=== PATIENT | female | born 1985 | race Caucasian/White ===

== ENCOUNTER 2016-07-09 06:45 | Inpatient (IN) | payer OTHER ==
[~2016-07-09] VITALS: Ht 157.5 cm; Wt 95.7 kg
--- NOTE | 2016-07-09 09:35 | NUR ---
admit note Pt transferred from [facility]. Report received form [facility] RN. Pt arrived to room 1010 via stretcher with numerical control machine machinist. Pt oriented to room, use of call light. Policies and procedure explained. Pt verbalized understanding. Pt alert, oriented to person, place and time. Pt SL at this time. Ongoing care.
[2016-07-09 10:04] VITALS: BP 131/85; PULSE 81; RESP 18; O2SAT 100
[2016-07-09] MEDS ORDERED: 0.9% Sodium Chloride 1,000 ML IV SCH (10:17)
[2016-07-09] MEDS ORDERED: Polyethylene Glycol (PEG) 17 Gm Powder PO PRN (10:20)
[2016-07-09] MEDS ORDERED: Alum-Mag Hydrox-Simeth 30 mL Suspension PO PRN (10:20)
[2016-07-09] MEDS ORDERED: DESM10SP6 NASAL (13:15)
[2016-07-09] MEDS: Ondansetron 2 mg/mL 2 mL Inj IVPUSH PRN (13:56)
[2016-07-09 14:32] VITALS: BP 134/91; PULSE 89; RESP 18; O2SAT 96
--- NOTE | 2016-07-09 15:53 | PCM.HPMED ---
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 Patient had been in her regular state of health when she started to develop flu like symptoms and went to urgent care. Patient was in urgent care but due to the acuity of her illness and her medical history she was asked to go to the ER. Patient was seen at [facility] for possible influenza. Patient had blood work done which revealed the presence of hyponatremia. Patient was seen to have a sodium level of 117. Given the lack of nephrology and endocrinology, the physicians at [facility] believed the patient would receive a higher level of care at [facility]. Patient when seen had no complaints except for occasional headache and polyuria. Patient had missed one dose of her medication and patients symptoms normalized after taking her own medication. Patient is currently stable and has no complaints. Review of Systems: patient has complaints of polyuria and occasional headaches, patient has no other complaints at the moment Allergies Coded Allergies: morphine (Verified Allergy, Mild, 07/09/16) Home Medications vasopressin intranasal spray PMH pituitary mass, diabetes insipidus Surgical History trans sphenoidal removal of pituitary mass Family History non-contributory Social History Hx Alcohol Use: Yes ("a couple glasses of wine a night") Hx Substance Use: No Exam Vital Signs Vital Sign - Last Date Time Temp Pulse Resp B/P Pulse Ox O2 Delivery O2 Flow Rate FiO2 07/09/16 14:32 36.7 89 18 134/91 96 Room Air Exam Gen: Alert and oriented X 3, no acute distress HEENT: PERRL, neck supple, cranial nerves intact CV: S1 and S2 noted, no murmurs rubs or gallops Resp: CTA BL, no wheezes or crackls Abd: Soft non tender, no pain to palpation Ext: Appropriate motor and sensory function. Neuro: Appropriate motor function, no focal neurological deficits Psych: Appropriate mood and affect Lab and Diagnostics Labs labratory values in bedside chart from [facility], will obtain repeat values later today Assessment & Plan Patient is a 30 year old female with diabetes insipidus that is presenting with an incidental finding of hyponatremia on out patient blood work. Patient is asymptomatic and has complaints at the moment. Hyponatremia - Patient has an established history of diabetes insipidus secondary to pituitary mass removal - Patient has been on desmopressin for 14 years - Pt does not have an granite installer currently and has not had any follow up in years - Her prescription is primarily filled by her pmd, and according to her most recent visit had no abdnormality in her sodium - She admits to drinking more water than usual since shes felt ill, she has missed only one dose of her vasopressin - pt had a quick episode of polyuria indicating medication leaving the system , resumed desmorpessin after this - will do fluid restriction and continue with vasopressin dose - will repeat sodium in the afternoon and that will dictate to as the next step in managment - if patient continues to have hyponatremia, will increase sodium load Influenza - Patient had complaints of flu like symptoms - pt tested negative for flu DVT ppx via lovenox GI ppx not warranted Pt is from home, no services required Vin Quigley MD Jul 09, 2016 15:53
--- NOTE | 2016-07-09 17:39 | NUR ---
Nausea/headache pt c/o of nausea and headache, Administered 8mg zofran pt stating feeling "a little better" with reassessment. MD made aware about headache, new order for 600mg ibuprofen. Pt resting with eyes closed with reassessment.
--- NOTE | 2016-07-09 17:51 | NUR ---
Social Work: Screen D: Per EMR review, pt is a 30 year old female admitted for hyponatremia, Possible Viral Syndrome. Pt is [employer] insurance. PCP Is Argelia Chacon DO. NOK is Uriel Dong, Spouse, . Advanced directives not completed; ELECTROPLATER APPRENTICE provided copy to pt. Readmit score not entered at this time. EMR reviewed; Pt lives in [place] with her spouse. She is I at baseline and continues to be I during admission. No sw needs or barriers identified at this time. A: [place]. P: Anticipate pt to discharge home via POV pending clinical course; ELECTROPLATER APPRENTICE to continue to follow and assist if dcp needs arise. LINDA Batres
[2016-07-09 20:10] VITALS: BP 130/81; PULSE 86; RESP 18; O2SAT 98
[2016-07-09] MEDS ORDERED: Desmopressin 100 mCg/mL 5 mL Nasal Spray NASAL SCH (20:30)
[2016-07-09 22:33] VITALS: PULSE 84
[2016-07-10] VITALS (8 sets, daily range): BP systolic 117–143; BP diastolic 79–90; PULSE 78–92; RESP 20–22; O2SAT 99–100
--- NOTE | 2016-07-10 02:51 | NUR ---
Diarrhea/Nausea Pt alert and oriented x3. C/o slight nausea but felt that she started having the loose bm after 1st dose of Zofran yesterday afternoon. She expressed concern of feeling slightly dizzy and weak again. She expressed some anxiety that her Na level might be low again. Md made aware. Pt educated about 1.5L Free water fluid restriction with understanding. Pt had another small diarrhea last night. She refused further dose of Zofran for mild nausea at this time. No vomiting noted/reported. Telemetry SR in 80s to 90s. HR up to low 110s with activity.
[2016-07-10 06:22] LABS: BASOPHILS % (AUTO) 0.4 % (0-3); EOSINOPHILS % (AUTO) 0.5 % (0-5); MONOCYTES % (AUTO) 12.4 % (4-12); Mean Corpuscular Hemoglobin 28.7 pg (27.0-35.0); Mean Corpuscular Volume 79.8 fL (81-100); NEUTROPHILS % (AUTO) 52.1 % (40-74); Platelet Count 319 bil/L (150-400)
[2016-07-10] MEDS: DESMOPRESSIN ACETATE NASAL SCH ×2 (08:08→20:15)
[2016-07-10] MEDS: 0.9% Sodium Chloride 1,000 ML IV SCH ×2 (08:38→18:36)
[2016-07-10 08:57] LABS: APPEARANCE,URINE HAZY (CLEAR,HAZY); COLOR,URINE YELLOW (YELLOW); OCCULT BLOOD,URINE NEGATIVE (NEGATIVE); UROBILINOGEN,URINE NORMAL (NORMAL)
--- NOTE | 2016-07-10 09:23 | NUR ---
Anxiety Pt anxious about Na level. Educated pt on free h20 restriction but enc pt to drink other fluids such as chicken broth. Pt states she still feels like she is in a "fog" but she thinks that the iv fluids were working (fluid just started and 47 mls were infused). Explained to pt that it may take some time for her to feel better since the fluids had just started. Pt and pt stated that she had not slept in 48 hours. Enc pt to try and rest. Care conts
--- NOTE | 2016-07-10 10:34 | NUR ---
nausea mild nausea after drinking a cup of broth quickly but still wants to eat her breakfast. Printed info about Coronavirus given to pt and . Rare prod cough, feeling of fullness in her head, she no longer has a sore throat
[2016-07-10] MEDS: Ondansetron 2 mg/mL 2 mL Inj IVPUSH PRN (11:07)
--- NOTE | 2016-07-10 16:29 | PCM.PNMED ---
Subjective Date of Service Jul 10, 2016 Subjective says feeling delirious and with nausea and lightheadedness with standing. Is convinced that her sodium level is much lower than what the lab showed this morning! Exam Vital Signs Vital Sign - Last Date Time Temp Pulse Resp B/P Pulse Ox O2 Delivery O2 Flow Rate FiO2 07/10/16 13:25 36.3 80 20 130/85 100 Room Air Intake and Output 07/09/16 07/09/16 07/10/16 Cumulative From/Thru 15:00 23:00 07:00 07/09/16 14:34 - 07/10/16 05:44 Intake Total 1000 ml 560 ml 1560 ml Output Total 2200 ml 1000 ml 3200 ml Balance -1200 ml -440 ml -1640 ml Intake Oral 1000 ml 560 ml 1560 ml Output Urine Total 2200 ml 1000 ml 3200 ml # Bowel Movements 0 1 1 General: Alert, Oriented X3, Cooperative, No Acute Distress Eyes: PERRLA, EOMI, Scleral Anicteric Mouth: Mucous Membr Moist/[place] Neck: Supple Chest & Lungs: Chest Wall Normal, Clear to auscultation & percussion Cardiovascular: Regular Rate/Rhythm Abdomen: Non-tender, Non-distended, Normoactive bowel tones, Soft Extremities: No cyanosis/clubbing/edma bilat Neurological: Grossly Neurologically Intact, Cranial Nerves 2-12 Intact, Normal Speech IVs and Medications Medications Reviewed: Medications were reviewed in detail Lab and Diagnostics Result Diagram: 07/10/1645 07/10/16 0545 Assessment & Plan 30 year old female with history of trans sphenoidal removal of pituitary mass and subsequent diabetes insipidus presenting with an incidental finding of hyponatremia at an outside hospital after presenting with flu like symptoms # Acute Hyponatremia. poa. ongoing - did not respond to fluid restriction and resumption vasopressin yesterday - clinically appears somewhat dehydrated - start trial of IV NS - f/u repeat BMP this afternoon and if Na not improving or worsening will consider official nephrology consult at that point # History of diabetes insipidus secondary to pituitary mass removal - c/w home dose desmopressin # Generalized malaise and upper respiratory symptoms. - She was apparently only checked for rapid flu test prior to admission - viral PCR ordered today and positive for Coronavirus OC43 - c/w supportive care and symptom management # Acute UTI, likely present on admission - UA was ordered today for further workup of hyponatremia and reported symptoms and seems positive for UTI - start empiric IV Ceftriaxone - f/u pending culture # Report of insomnia for past few days - will give prin Ativan tonight both for sleep and control of generalized anxiety Dispo: 2-3 days Time spent 40 min with more than half face to face and answering patient's multiple questions and concerns Quinton Hoyos Jul 10, 2016 16:29
[2016-07-10] MEDS ORDERED: cefTRIAXone Inj 2,000 MG in IV Premix 1 EACH IV SCH (16:30)
[2016-07-10] MEDS ORDERED: LORazepam 1 mg Tablet PO PRN (20:05)
--- NOTE | 2016-07-11 00:34 | NUR ---
Transfer to Care Report given to Gavino. NS at 100 ml/hr. Pt c/o continue cramping during voids. Ativan po given for anxiety and difficulty sleeping.
[2016-07-11 00:45] VITALS: BP 120/79; PULSE 91; RESP 20; O2SAT 100
[2016-07-11] MEDS: 0.9% Sodium Chloride 1,000 ML IV SCH (04:39)
[2016-07-11 05:43] VITALS: BP 123/88; PULSE 100; RESP 20; O2SAT 98
[2016-07-11 06:37] LABS: BASOPHILS % (AUTO) 0.3 % (0-3); EOSINOPHILS % (AUTO) 0.2 % (0-5); MONOCYTES % (AUTO) 11.4 % (4-12); NEUTROPHILS % (AUTO) 54.1 % (40-74); Platelet Count 350 bil/L (150-400)
[2016-07-11 07:14] LABS: INR 0.97 ratio
[2016-07-11] MEDS: DESMOPRESSIN ACETATE NASAL SCH ×2 (08:10→17:00)
[2016-07-11] MEDS: Ondansetron 2 mg/mL 2 mL Inj IVPUSH PRN ×2 (09:52→23:46)
--- NOTE | 2016-07-11 10:23 | NUR ---
Patient requested to have a shower today. she is set up to do so although is wanting to define the time when it is done. Addendum: 07/11/16 at 1024 by JEREMÍAS ALBA CNA Amended: Links added.
[2016-07-11 11:47] VITALS: BP 155/92; PULSE 84; RESP 18; O2SAT 99
--- NOTE | 2016-07-11 12:59 | PCM.PNMED ---
Subjective Date of Service Jul 11, 2016 Subjective woosy intermittently, not necessarily w/ ativan which helped her to sleep last night, Etoh 2 per day no DTs in the past pateint has actually been taking her nasal desmopressin sinus congestion is improved dysuria is resolved but ongoing bladder pressure Exam Vital Signs Vital Sign - Last Date Time Temp Pulse Resp B/P Pulse Ox O2 Delivery O2 Flow Rate FiO2 07/11/16 11:47 36.8 84 18 155/92 99 Room Air Intake and Output 07/10/16 07/10/16 07/11/16 Cumulative From/Thru 15:00 23:00 07:00 07/09/16 14:34 - 07/10/16 20:13 Intake Total 2586 ml 4146 ml Output Total 500 ml 3700 ml Balance 2086 ml 446 ml Intake Oral 1516 ml 3076 ml IV Total 1070 ml 1070 ml Output Urine Total 500 ml 3700 ml # Voids 1 1 # Bowel Movements 1 2 Exam NAD A and O x 3 n oinjected eyes no oral lseions no pain to sinus palpation CTAB RRR soft + BS SOARES edematous facial/arm leg appearance, which is endorse by friend and started after ER bolused her 2 days ago. Lab and Diagnostics Result Diagram: 07/11/16 0610 07/11/16 0610 Assessment & Plan 30 year old female with trans sphenoidal removal of pituitary mass/diabetes insipidus/desmopressin x 14 yr, presenting with flu like symptoms / sinusitis / diarrhea related UTI, cornavirus detected, UCx just nadeem. # Acute Hyponatremia. worse poa. ongoing edema - s/p fluid restriction 1.5L, NS resumed, resumption vasopressin(at bedside not on AUG) >> CHANGE NOW fluid restrict to 1L, salt tab QDay (consdier TID), dc NS- rocephine, augmentin pill instead, Uosm Lilli pending, thoguht to be SIADH but actually still taking her desmopressin. Nephrology aware. - f/u repeat BMP this afternoon and if Na not improving or worsening will consider official nephrology consult at that point # History of diabetes insipidus secondary to pituitary mass removal - c/w home dose desmopressin # Generalized malaise and upper respiratory symptoms. positive for Coronavirus OC43 # Acute UTI, likely present on admission - positive UA w/ symptoms - dc IV Ceftriaxone tansition to augmentin # Report of insomnia for past few days - prn Ativan tonight both for sleep and control of generalized anxiety dvt prophylaxis - ambulate, many arm bruises dc lovenox Dispo: 2-3 days Darnell Perez MD Jul 11, 2016 12:59 Dispo: 2-3 days Darnell Peerz MD Jul 11, 2016 12:59
[2016-07-11] MEDS: Amoxicillin-Clav 875-125 mg Tablet PO SCH ×2 (14:35→22:28)
[2016-07-11 15:51] VITALS: BP 147/99; PULSE 87; RESP 18; O2SAT 99
--- NOTE | 2016-07-11 17:46 | NUR ---
Confusion/Blood sugar Pt reporting decrease in confusion and hallucinations as day progressed, specifically with DC'ing IVF and administration of salt tablet. Pt requesting Desmopressin earlier than 2030 d/t worsening frequency, administered at 1745 as order is BID and pt would administer this way at home. Per conversation with Dr. Perez, [facility] blood sugar checks are not necessary. She will check chemistry with morning labs.
[2016-07-11 21:21] VITALS: BP 132/89; PULSE 87; RESP 20; O2SAT 99
[2016-07-11] MEDS ORDERED: 3% Sodium Chloride Inj 500 ML IV STA (21:41)
[2016-07-11] MEDS: LORazepam 1 mg Tablet PO PRN (22:28)
--- NOTE | 2016-07-11 23:00 | NUR ---
Sodium Critical sodium of 119. MD made aware. New orders for 3% sodium drip at 20ml/hr with repeat labs at 0200. MD also wanted to hold desmopressin. Pt also continues with 1000 free fluid restriction. Pt reports feeling better despite critical lab. Addendum: 07/12/16 at 0631 by NIDA STARKS RN Sodium 0200 sodium level was 120. Pt request to take her desmopressin inhaler. Checked with hospitalist who said it was okay for pt to have her desmopressin.
[2016-07-12] MEDS: DESMOPRESSIN ACETATE NASAL SCH (04:02)
[2016-07-12 05:29] VITALS: BP 110/85; PULSE 91; RESP 20
[2016-07-12] MEDS: Amoxicillin-Clav 875-125 mg Tablet PO SCH (09:27)
[2016-07-12] MEDS: Ondansetron 2 mg/mL 2 mL Inj IVPUSH PRN (09:38)
--- NOTE | 2016-07-12 10:17 | PCM.PNMED ---
Subjective Date of Service Jul 12, 2016 Subjective Her confusion has cleared. Her and her close friend are present and deeply involved in the discussions regarding her DDAVP, her sodium level, and the clinical treatment approach to be taken today. Her sodium level this morning is 120, with a follow-up now pending after a 3% sodium infusion that is about shelter done so far. Dr. Montano of nephrology has been giving guidance on the approach but has not formally seen her yet Exam Vital Signs Vital Sign - Last Date Time Temp Pulse Resp B/P Pulse Ox O2 Delivery O2 Flow Rate FiO2 07/12/16 05:29 36.7 91 20 110/85 Room Air 07/11/16 21:21 99 Intake and Output 07/11/16 07/11/16 07/12/16 Cumulative From/Thru 15:00 23:00 07:00 07/09/16 14:34 - 07/12/16 06:57 Intake Total 1547 ml 1136 ml 800 ml 7629 ml Output Total 1000 ml 800 ml 700 ml 6200 ml Balance 547 ml 336 ml 100 ml 1429 ml Intake Oral 600 ml 536 ml 800 ml 5012 ml IV Total 947 ml 600 ml 2617 ml Output Urine Total 1000 ml 800 ml 700 ml 6200 ml # Voids 7 3 11 # Bowel Movements 0 0 1 3 Exam She is alert and oriented 3, in no apparent distress. Heart is regular rate and rhythm without murmur. Lungs are clear to auscultation bilaterally. Extremities have no ankle edema. Lab and Diagnostics Result Diagram: 07/11/16 0610 07/12/16 0230 Assessment & Plan 30 year old female with a history of distant trans sphenoidal removal of pituitary mass/diabetes insipidus/desmopressin x 14 yr, presenting with flu like symptoms / sinusitis / diarrhea related UTI, cornavirus detected, UCx just nadeem. # Acute Hyponatremia - s/p fluid restriction 1.5L, NS resumed, resumption vasopressin >> CHANGE NOW fluid restrict to 1L, salt tab QDay (consider TID). Uosm Lilli pending, thought to be SIADH but actually still taking her desmopressin. Nephrology aware. - 3% sodium infused overnight. - Follow up sodium level from this morning is still pending. Management approach per plan and discussion with nephrology. # History of diabetes insipidus secondary to pituitary mass removal - c/w home dose desmopressin # Generalized malaise and upper respiratory symptoms. positive for Coronavirus OC43 # Acute UTI ruled out on urine culture. - Rocephin was stopped. - Has continued on Augmentin for possible sinusitis. # Report of insomnia for past few days - prn Ativan tonight both for sleep and control of generalized anxiety dvt prophylaxis - ambulate, many arm bruises dc lovenox Dispo: 1-2 depending on timeframe to correct sodium levels to near normal Roaxna Devries MD Jul 12, 2016 07:44
[2016-07-12 11:00] VITALS: BP 113/86; PULSE 87; RESP 19; O2SAT 99
[2016-07-12 13:32] LABS: APPEARANCE,URINE CLEAR (CLEAR,HAZY); COLOR,URINE YELLOW (YELLOW); OCCULT BLOOD,URINE NEGATIVE (NEGATIVE); UROBILINOGEN,URINE NORMAL (NORMAL)
[2016-07-12 13:34] VITALS: BP 153/99; PULSE 83; RESP 22; O2SAT 99
[2016-07-12] MEDS: LORazepam 1 mg Tablet PO PRN (14:10)
[2016-07-12 14:37] VITALS: PULSE 79
--- NOTE | 2016-07-12 15:29 | NUR ---
Social Work: Readiness for Discharge D: Pt discussed in morning rounds. Pt is not yet medically stable for discharge at this time with critical sodium levels overnight. Pt continues to be I during admission. EMR reviewed and no social work needs or barriers identified at this time. A: Pt who is I at baseline and lives in [place] with spouse. P: Anticipate pt to discharge home via POV once medically stable; CHOP SAW OPERATOR to continue to follow and assist if needs arise. LINDA Batres
--- NOTE | 2016-07-12 16:35 | CONS ---
[address] [address] CONSULTATION REPORT PATIENT: SIVA TANG : 1985 MR#: [id number] ADMIT: 07/09/2016 JOB ID: [id number] DATE OF SERVICE: 07/12/2016 REQUESTING PHYSICIAN: Dr. Perez. REASON FOR CONSULTATION: Management of hyponatremia. PRESENT ILLNESS: This is a very pleasant, 30-year-old lady with significant past medical history of pituitary adenoma status post transsphenoidal removal of pituitary mass, complicated by diabetes insipidus who presented to the hospital with a complaint of flu-like symptoms. The patient started having flu-like symptoms one week prior to the admission. She was seen by a physician in the emergency department at [facility]. She was found to have sodium level of 117. The patient was transferred to [facility] for further management since that facility does not have a sheet metal duct installer apprentice and shoe folder. Her initial sodium was 126. She was started on normal saline 100 cc per hour on July 09 and was stopped on July 11. Throughout the hospitalization, her sodium level has been low. I was asked to evaluate the patient given the worsening hyponatremia. Of note, the patient has been using desmopressin initially during this hospitalization. Last night, her sodium level dropped to 119. We started 3% normal saline infusion 20 cc/hour and desmopressin was held last night. However, the patient was very anxious not being on desmopressin and she again used nasal desmopressin this morning at 4 p.m. The repeat serum sodium dropped further to 117. During my visit, the patient is quite anxious. She no longer has fever. She has no cough. No chest pain. No shortness of breath. The respiratory panel was positive for mullins virus. We had a long discussion in terms of withholding nasal desmopressin for now given critically low serum level. The patient has not seen any shoe folder or sheet metal duct installer apprentice. She had blood work done with her primary physician in August 2015. She assumed that her sodium level was normal. During this illness the patient stated that she has consumed more water than usual. PAST SURGERY HISTORY: Pituitary adenoma status post transsphenoidal removal of pituitary tumor complicated by diabetes insipidus. She had surgery in 2002. FAMILY HISTORY: Noncontributory. SOCIAL HISTORY: Denies current use of alcohol, tobacco, or illicit drugs. ALLERGIES: MORPHINE. REVIEW OF SYSTEMS: Constitutional: No fever, no chills. HEENT: No headaches. No blurred vision. Cardiovascular: No chest pain. No shortness of breath. Pulmonary: No cough. No hemoptysis. GI: No nausea, vomiting. : No dysuria. No hematuria. Skin: No rashes. No excoriation. Endocrine: Positive history of diabetes insipidus. No history of diabetes mellitus. No hypothyroid. Neurological: No neurological deficit. MEDICATIONS: 1. Desmopressin nasal spray 0.1 mg twice a day. 2. Senokot p.r.n. for constipation. 3. Polyethylene glycol p.r.n. for constipation. 4. Zofran p.r.n. for nausea, vomiting. 5. Ativan p.r.n. for anxiety. 6. Augmentin 1 tablet b.i.d. PHYSICAL EXAMINATION: Vitals: Temperature 36.5, pulse 83, respiratory rate 20, blood pressure 113/86, O2 sat 99% on room air. General appearance: Awake, alert x3. No acute distress. HEENT: No pallor. No jaundice. No JVD. No lymphadenopathy. No thyroid enlargement. Heart: Regular rhythm. Normal S1, S2. No murmurs, rubs, or gallops. Lungs: Clear to auscultation bilaterally. Abdomen is soft, active bowel sounds. Nontender, nondistended. No hepatosplenomegaly. Extremity: No edema, cyanosis or clubbing of fingers. LABORATORY: Sodium 117, potassium 4.4, chloride 84, bicarb 19, BUN 6, creatinine 0.34, glucose 104, uric acid 1.9, calcium 8.7, INR 0.97, hemoglobin 13, urine sodium 210, urine osmolarity 734, urine pH of 7.0, urine specific gravity 1.020, WBCs 0-5, RBCs 0-2. ASSESSMENT AND PLAN: This is a very pleasant, 30-year-old lady with significant past medical history of pituitary adenoma status post transsphenoidal removal of pituitary tumor in 2002, complicated by diabetes insipidus. The patient has used desmopressin nasally 0.1 mg twice a day for 13 years. Her last blood work with her family physician was in August 2015. She recently found to have hyponatremia during viral syndrome. She was found to have the mullins virus infection. She stated consuming more water than usual. Her current sodium is 117. So far, the patient is not symptomatic. The current urine osmolarity is very high at a level of 734. The etiology of chronic hyponatremia at this point is likely due to desmopressin overdose. At this point, I will discontinue desmopressin. We will monitor her water intake and urine output. I will recheck her serum level again at 4 p.m. We will adjust desmopressin dosage depending upon her sodium level. Thank you for the consultation. We will monitor along with you. BARBRAD
[2016-07-12 18:31] VITALS: BP 135/87; PULSE 102; RESP 17; O2SAT 100
--- NOTE | 2016-07-12 19:20 | NUR ---
Sodium P: Polyuria this afternoon with Desmopressin being held. Pt voiding q 10 minutes around 50cc at a time. Diarrhea x2 reported. Increased HR noted from telemetry. Last Sodium level at 1600 was 123. I: Dr. Peters notified and orders recieved to stop Augmentin in hopes of clearing diarrhea. Desmopressin stopped. Follow up labs ordered for morning. Continue with 1L free water restriction. E: Pt agreeable to plan but concerned about continued urination. Will continue to monitor closely. Total urine output today 1700cc.
[2016-07-12 19:52] VITALS: BP 134/85; PULSE 114; RESP 20; O2SAT 100
[2016-07-13] VITALS (8 sets, daily range): BP systolic 112–128; BP diastolic 73–87; PULSE 103–120; RESP 16–20; O2SAT 95–100
--- NOTE | 2016-07-13 02:28 | NUR ---
Activity/ tele Pt continues to be up to bathroom throughout the night every 30-60 min, voiding small amounts at a time. With each trip to the bathroom pt heart rate has been jumping up into the 120-130s. HR will return to SR 90s while sleeping. Pt denies chest pain. Continues to have free water restriction of 1L/24 hrs. Pt has been doing much better with anxiety and did not want to take Ativan at bedtime. Pt reports being able to sleep but just "having to wake up often to pee". Next sodium check will be with AM labs.
[2016-07-13] MEDS: LORazepam 1 mg Tablet PO PRN ×3 (09:18→22:41)
[2016-07-13] MEDS ORDERED: MeTOProlol 1 mg/mL 5 mL Inj IV ONE ×3 (10:37→15:52)
[2016-07-13] MEDS: Desmopressin 100 mCg/mL 5 mL Nasal Spray NASAL SCH (13:11)
--- NOTE | 2016-07-13 14:47 | PCM.PNMED ---
Subjective Date of Service Jul 13, 2016 Subjective Patient was seen today and her sodium is 137. Her intake and output was 24 hour she 2337 and in 2400 out she complains of thirst and I have discussed ongoing use of intranasal DDAVP. Exam Vital Signs Vital Sign - Last Date Time Temp Pulse Resp B/P Pulse Ox O2 Delivery O2 Flow Rate FiO2 07/13/16 10:54 120 07/13/16 04:37 36.8 20 124/84 95 Room Air Intake and Output 07/12/16 07/12/16 07/13/16 Cumulative From/Thru 15:00 23:00 07:00 07/09/16 14:34 - 07/13/16 06:26 Intake Total 174 ml 1363 ml 1300 ml 38820 ml Output Total 1700 ml 1900 ml 9800 ml Balance 174 ml -337 ml -600 ml 666 ml Intake Oral 1300 ml 1300 ml 7612 ml IV Total 174 ml 63 ml 2854 ml Output Urine Total 1700 ml 1900 ml 9800 ml # Voids 11 # Bowel Movements 3 6 Exam Neck supple without adenopathy thyromegaly or trigger venous distention. Lungs were clear to auscultation. Heart is regular and rhythmical with soft systolic murmur. Abdomen was soft without any tenderness or rebound guarding masses or hepatosplenomegaly. Extremities do not show any evidence of clubbing cyanosis or edema. Lab and Diagnostics Result Diagram: 07/11/16 0610 07/13/16 0454 Assessment & Plan Impression #1 central diabetes insipidus #2 hyponatremia Recommendations #1 patient has been advised to use DDAVP intranasal spray only as directed. I would like to increase her fluid restriction to 1500 mL per day. At this point we are going to sign off. Should you have any questions or any change in the patient's condition please do not hesitate to ask. Robert Bhatia DO Jul 13, 2016 14:47
--- NOTE | 2016-07-13 19:21 | NUR ---
HR Pt heart rate running 120-130 this am increasing to the 140s, notified, EKG obtained, IV Metoprolol and oral metoprolol given. Oral ativan given as well. HR decreased to 110s-low 120s, another dose of IV metoprolol given this afternoon. Pt HR down to the 90s-low 100s, Tele on. pt restarted on her Desmopresson. Addendum: 07/13/16 at 1925 by GUILLERMO NATARAJAN RN Kayexalate given for a Potassium level of 5.5
--- NOTE | 2016-07-13 22:59 | PCM.PNMED ---
Subjective Date of Service Jul 13, 2016 Subjective Patient is feeling much better after taking does more pressing. Last night she stated that she had to urinate every 15 minutes. She also had diarrhea today from Kayexalate and blames this for her tachycardia and dehydration. Currently she is feeling much better and is in good spirits. Exam Vital Signs Vital Sign - Last Date Time Temp Pulse Resp B/P Pulse Ox O2 Delivery O2 Flow Rate FiO2 07/13/16 20:30 36.4 106 17 123/84 97 Room Air Intake and Output 07/12/16 07/12/16 07/13/16 Cumulative From/Thru 15:00 23:00 07:00 07/09/16 14:34 - 07/13/16 06:26 Intake Total 174 ml 1363 ml 1300 ml 63665 ml Output Total 1700 ml 1900 ml 9800 ml Balance 174 ml -337 ml -600 ml 666 ml Intake Oral 1300 ml 1300 ml 7612 ml IV Total 174 ml 63 ml 2854 ml Output Urine Total 1700 ml 1900 ml 9800 ml # Voids 11 # Bowel Movements 3 6 Exam General: Patient is in no apparent distress. She is in good spirits lately this afternoon and evening HEENT: Head is atraumatic normocephalic. Eyes: Pupils are equally round and reactive to light and accommodation. Extraocular muscles are intact. Sclera are white anicteric. Subconjunctival mucosa is pink. Ears and nose are unremarkable. Oropharynx: There is no mucosal lesions, there is no thrush, there is no pharyngitis. Neck: Is supple, there are no nodes, or masses or tenderness. Chest: Is clear to auscultation and percussion. There are no rales, rhonchi, wheezes or rubs. Heart: Rate, rhythm is regular. There is no murmur, rub or gallop. Abdomen: Good bowel sounds are present. Abdomen is soft, nontender, no organomegaly or masses were appreciated. Extremities: Are symmetrical and well perfused. There is no edema, there is no cellulitis, no rash. Neurologic: There are no focal neurological deficits. Cranial nerves II through XII are intact. There are no sensory or motor deficits. Psychiatric: Patients mood is calm and shows no sign of agitation. 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 # Acute Hyponatremia - s/p fluid restriction 1.5L, NS resumed, resumption vasopressin -Status post fluid restrict to 1L, salt tab QDay (consider TID). Uosm Lilli pending, thought to be SIADH but actually still taking her desmopressin. Nephrology aware. - 3% sodium infused overnight. - Management approach per plan and discussion with nephrology. And their recommendations are as follows: #1 patient has been advised to use DDAVP intranasal spray only as directed. I would like to increase her fluid restriction to 1500 mL per day. At this point we are going to sign off. Should you have any questions or any change in the patient's condition please do not hesitate to ask. 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 Improving -Nasopharyngeal swab positive for Coronavirus OC43 -Augmentin was discontinued # Acute UTI ruled out on urine culture. - Rocephin was stopped. - Was on Augmentin for possible sinusitis. However, this was discontinued # Report of insomnia for past few days - prn Ativan tonight both for sleep and control of generalized anxiety dvt prophylaxis - ambulate, many arm bruises dc lovenox Dispo: 1-2 depending on timeframe to correct sodium levels to near normal Pain Evaluation: Adequate Pain Control GI Prophylaxis: Not indicated VTE Prophylaxis: Other (she has been getting up and out of bed every 15 minutes ago the bathroom and the CDs would be impractical and heparin or subcutaneous enoxaparin likely not needed.) Resuscitation Status: CPR: Attempt Resuscitation Talib Lopez MD Jul 13, 2016 22:59
[2016-07-14 00:33] VITALS: BP 124/81; PULSE 114; RESP 17; O2SAT 98
[2016-07-14] MEDS: Desmopressin 100 mCg/mL 5 mL Nasal Spray NASAL SCH ×3 (02:34→08:30)
[2016-07-14 04:49] VITALS: BP 109/73; PULSE 115; RESP 17; O2SAT 98
--- NOTE | 2016-07-14 04:52 | NUR ---
Activity Pt overall reports feeling much better. Requested to have her desmopressin late since she chronically takes this medication she can tell when her bladder needs it. Pt is on tele ST100, down to SR 90s while sleeping. Pt is on a 1.5L free water restriction. Pt took Ativan at bedtime to help her sleep. Pt reporting this morning she has slept intermitently throughout the night just getting up a couple times to void.
[2016-07-14 09:40] LABS: BASOPHILS % (AUTO) 0.4 % (0-3); EOSINOPHILS % (AUTO) 0.5 % (0-5); MONOCYTES % (AUTO) 10.1 % (4-12); Mean Corpuscular Hemoglobin 28.6 pg (27.0-35.0); Mean Corpuscular Volume 83.8 fL (81-100); NEUTROPHILS % (AUTO) 64.4 % (40-74); Platelet Count 415 bil/L (150-400)
[2016-07-14 10:16] LABS: Magnesium 1.8 mg/dL (1.6-2.6)
[2016-07-14 11:00] VITALS: BP 120/82; PULSE 109; RESP 17; O2SAT 99
--- NOTE | 2016-07-14 12:04 | PCM.DIMED ---
Discharge Instructions Date of Service Jul 14, 2016 Dates of Hospitalization Jul 09, 2016 at 09:35 Discharge Diagnosis Discharge Diagnosis Diabetes Insipidus with hyponatremia Diet Heart Healthy Activity No restrictions (May resume usual activities gradually as tolerated.) Call your provider Fever or Chills, Shortness of breath, Bleeding, Chest pain, Vomitting, Excessive diarrhea, Weakness (unilateral), Other Patient Instructions Follow-up Provider: Argelia Chacon DO Follow-up with PCP in: 1 week Follow-up in: 2 weeks (endocrinology) Talib Lopez MD Jul 14, 2016 12:04
[2016-07-14] MEDS ORDERED: METO25TA6 PO (12:05)
--- NOTE | 2016-07-14 14:30 | NUR ---
Ready for DC Pt. almost ready for discharge. IV and tele dc'd. Instructions gone over with pt. No questions or concerns at this time. She wants to wait until leaving for a bit because of her last administration of kayexelate around 1300. She wants to make sure she is next to a bathroom for a bit. She will let us know when she is ready to go.
--- NOTE | 2016-07-14 15:11 | NUR ---
Discharge Pt. discharged in stable condition to home at 1420.
--- NOTE | 2016-07-15 00:57 | PCM.DC.MED ---
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 Patient had been in her regular state of health when she started to develop flu like symptoms and went to urgent care. Patient was in urgent care but due to the acuity of her illness and her medical history she was asked to go to the ER. Patient was seen at [facility] for possible influenza. Patient had blood work done which revealed the presence of hyponatremia. Patient was seen to have a sodium level of 117. Given the lack of nephrology and endocrinology, the physicians at [facility] believed the patient would receive a higher level of care at [facility]. Patient when seen had no complaints except for occasional headache and polyuria. Patient had missed one dose of her medication and patients symptoms normalized after taking her own medication. Patient is currently stable and has no complaints. Patient was admitted to the hospital service for further evaluation and treatment. 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 # Acute Hyponatremia - s/p fluid restriction 1.5L, NS resumed, resumption vasopressin -Status post fluid restrict to 1L, salt tab QDay (consider TID). Uosm Lilli pending, thought to be SIADH but actually still taking her desmopressin. Nephrology aware. - 3% sodium infused overnight. - Management approach per plan and discussion with nephrology. And their recommendations are as follows: #1 patient has been advised to use DDAVP intranasal spray only as directed. We have increased her fluid restriction to 1500 mL per day. 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 Improving -Nasopharyngeal swab positive for Coronavirus OC43 -Augmentin was discontinued # Acute UTI ruled out on urine culture. - Rocephin was stopped. - Was on Augmentin for possible sinusitis. However, this was discontinued # Report of insomnia for past few days - prn Ativan tonight both for sleep and control of generalized anxiety dvt prophylaxis - ambulate, many arm bruises dc lovenox Dispo Patient is doing well and is to be discharged home today Exam Vital Signs (Last) Date Time Temp Pulse Resp B/P Pulse Ox O2 Delivery O2 Flow Rate FiO2 07/14/16 11:00 36.8 109 17 120/82 99 Room Air Exam General: Patient is in no apparent distress. She is resting due to being tired from last few days events. She is anxious to be discharged her. HEENT: Head is atraumatic normocephalic. Eyes: Pupils are equally round and reactive to light and accommodation. Extraocular muscles are intact. Sclera are white anicteric. Subconjunctival mucosa is pink. Ears and nose are unremarkable. Oropharynx: There is no mucosal lesions, there is no thrush, there is no pharyngitis. Neck: Is supple, there are no nodes, or masses or tenderness. Chest: Is clear to auscultation and percussion. There are no rales, rhonchi, wheezes or rubs. Heart: Rate, rhythm is regular. There is no murmur, rub or gallop. Abdomen: Good bowel sounds are present. Abdomen is soft, nontender, no organomegaly or masses were appreciated. Extremities: Are symmetrical and well perfused. There is no edema, there is no cellulitis, no rash. Neurologic: There are no focal neurological deficits. Cranial nerves II through XII are intact. There are no sensory or motor deficits. Psychiatric: Patients mood is calm and shows no sign of agitation. Genital: Deferred Rectal: Deferred Test 07/10/16 08:26 07/11/16 06:10 07/11/16 20:45 07/12/16 11:50 Urine Culture Reflexed Indicated Prothrombin Time 10.4sec (8.1-12.5) Prothromb Time International Ratio 0.97ratio Activated Partial Thromboplast Time 29.6sec (22.8-33.0) Thyroid Stimulating Hormone (TSH) 2.120uIU/mL (0.450-4.500) Uric Acid 1.9mg/dL (2.6-7.2) Urine Color Yellow (YELLOW) Urine Appearance Clear (CLEAR,HAZY) Urine pH 7.0 (5.0-8.0) Urine Specific [place] 1.020 (1.003-1.035) Urine Protein Negativemg/dL (NEG,TRACE) Urine Glucose (UA) Negativemg/dL (NEGATIVE) Urine Ketones Negativemg/dL (NEGATIVE) Urine Occult Blood Negative (NEGATIVE) Urine Nitrite Negative (NEGATIVE) Urine Bilirubin Negative (NEGATIVE) Urine Urobilinogen Normalmg/dL (NORMAL) Urine Leukocyte Esterase Negative (NEGATIVE) Urine RBC 0-2/hpf (0-2) Urine WBC 0-5/hpf (0-5) Urine Epithelial Cells Few/hpf (NONE-MOD) Urine Crystals None seen (NONE SEEN) Urine Bacteria None/hpf (NONE-FEW) Urine Hyaline Casts None/lpf (NONE) Urine Granular Casts None seen (NONE SEEN) Urine Waxy Casts None seen (NONE SEEN) Urine Red Blood Cell Casts None seen (NONE SEEN) Urine White Blood Cell Casts None seen (NONE SEEN) Urine Mucus None seen (None Seen) Urine Trichomonas None seen (NONE SEEN) Urine Yeast None (NONE SEEN) Urinalysis Comment None Urine Osmolality 734mOs/kH2O (250-1200) Urine Random Sodium 210mEq/L Test 07/14/16 09:21 White Blood Count 10.7th/mm3 (3.8-10.1) Red Blood Count 5.00mil/mm3 (3.90-5.20) Hemoglobin 14.3g/dL (12.0-15.6) Hematocrit 41.9% (35.0-46.0) Mean Corpuscular Volume 83.8fL (81-100) Mean Corpuscular Hemoglobin 28.6pg (27.0-35.0) Mean Corpuscular Hemoglobin Concent 34.1% (32.0-37.0) Red Cell Distribution Width 13.1% (12.3-15.4) Platelet Count 415bil/L (150-400) Neutrophils (%) (Auto) 64.4% (40-74) Lymphocytes (%) (Auto) 23.9% (14-46) Monocytes (%) (Auto) 10.1% (4-12) Eosinophils (%) (Auto) 0.5% (0-5) Basophils (%) (Auto) 0.4% (0-3) Sodium Level 137mEq/L (134-144) Potassium Level 5.3mEq/L (3.5-5.2) Chloride Level 98mEq/L (97-108) Carbon Dioxide Level 28mmol/L (18-29) Blood Urea Nitrogen 13mg/dL (6-20) Creatinine 0.71mg/dL (0.57-1.00) Estimat Glomerular Filtration Rate 137mL/min (>59) Glucose Level 100mg/dL (60-99) Calcium Level 9.6mg/dL (8.5-10.1) Magnesium Level 1.8mg/dL (1.6-2.6) Total Bilirubin 0.3mg/dL (0.0-1.2) Aspartate Amino Transf (AST/SGOT) 13U/L (0-50) Alanine Aminotransferase (ALT/SGPT) 23U/L (0-32) Alkaline Phosphatase 52U/L (25-150) Total Protein 6.6g/dL (6.4-8.4) Albumin 4.2g/dL (3.4-5.0) Microbiology Results CORONOVIRUS OC43 Final 07/10/16-0952 Organism 1 CORONAVIRUS OC43 CORONOVIRUS 0C43 DETECTED TIME CALLED: 949 DATE CALLED: 07/10/16 FLOOR/DOCTOR: BARBARA/ABISAI Garner CALLED BY: KLEstrada Discharge Medications Discharge Medications Desmopressin (Nonrefrigerated) (Desmopressin 10 Mcg/0.1 ml Spr) 10 Mcg/0.1 Ml [place].pump 1 SPRAY NASAL BID (Reported) Metoprolol Tartrate (Metoprolol Tartrate) 25 Mg Tablet 12.5 MG PO BIDWM Prescribed by: ANTONETTE LOPEZ MD Followup Plan Disposition: Patient is being discharged home with her . Discharge Diet: Heart Healthy Discharge Activity: No restrictions (May resume usual activities gradually as tolerated.) Follow-up Provider: Argelia Chacon DO Follow-up with PCP in: 1 week Follow-up in: 2 weeks (endocrinology) Time spent Time spent on discharging this patient was greater than 35 minutes, over half of which was involved in counseling and coordination of care. Talib Lopez MD Jul 15, 2016 00:57
== END 2016-07-14 14:20 | disposition home or self-care (01) | DRG 641 ==
LOC: INTOOBSV 09:35 → OSC 09:35 → OBSVTOIN 09:35
PROVIDERS: ADMIT Specialist; ATTEND Internal Medicine
DX: E87.1 Hypo-osmolality and hyponatremia (principal); E23.2 Diabetes insipidus; F41.1 Generalized anxiety disorder; G47.00 Insomnia, unspecified; B97.29 Other coronavirus as the cause of diseases classified elsewhere